=== PATIENT | female | born 1985 | race Caucasian/White ===

== ENCOUNTER → 2018-12-09 | Outpatient (CLI) | payer OTHER ==
--- NOTE | 2018-12-09 16:00 | RAD ---
EXAM: Right lower extremity venous Doppler sonogram. HISTORY: Pain and swelling. TECHNIQUE: Nogueira scale and color Doppler sonographic evaluation of the right lower extremity veins with spectral waveform analysis was performed. FINDINGS: There is normal color flow, normal compressibility and there are normal spectral waveforms in the common femoral, superficial femoral, popliteal, posterior tibial and greater saphenous veins. IMPRESSION: No Doppler evidence of lower extremity deep venous thrombosis. Electronically signed by: Riana Bach MD (12/09/2018 3:57 PM) [id number]
== END | disposition home or self-care (01) ==
LOC: US 14:46
PROVIDERS: ATTEND Physician Assistant
DX: M79.661 Pain in right lower leg (principal); M79.89 Other specified soft tissue disorders
CPT/HCPCS: 93971

== ENCOUNTER 2021-07-03 13:15 | Emergency (ER) | payer OTHER ==
[~2021-07-03] VITALS: Ht 182.9 cm; Wt 125.0 kg
[2021-07-03] MEDS ORDERED: IV NORMAL SALINE 1,000ML 1,000 ML IV ONE (14:45)
[2021-07-03] MEDS ORDERED: ONDANSETRON PF 4 MG/2 ML VIAL. IVP ONE ×3 (14:45→23:00)
[2021-07-03] MEDS ORDERED: FAMOTIDINE 20 MG/2 ML VIAL IVP ONE (14:45)
--- NOTE | 2021-07-03 14:58 | PHYS DOC ---
Past History Additional Past Medical Histor: HELLP (STEPHEN RUFF APRN) Past Surgical History: (STEPHEN RUFF APRN) General Adult EDM: Chief Complaint: NAUSEA/VOMITING/DIARRHEA HPI: HPI: Patient is a 36-year-old female presents with nausea and vomiting for 2 days. Patient states "I have been making myself vomit because it makes me feel better for a little bit". "I had some blood in my vomit but it might have been from my nose". No abdominal pain. Denies fever. Denies recent exposure to illness. Denies diarrhea. Patient states she has a history of type 1 diabetes, stage III kidney disease, liver disease. (STEPHEN RUFF APRN) Review of Systems: Review of Systems: ROS At least 10 ROS systems have been reviewed and are negative except as documented in the HPI. General: Negative except as outlined in HPI above. Skin: Negative except as outlined in HPI above. HEENT: Negative except as outlined in HPI above. Neck: Negative except as outlined in HPI above. Respiratory: Negative except as outlined in HPI above.. Cardiovascular: Negative except as outlined in HPI above. Abdomen: Negative except as outlined in HPI above. : Negative except as outlined in HPI above. Back/MSK: Negative except as outlined in HPI above. Neuro: Negative except as outlined in HPI above. Psych: Negative except as outlined in HPI above. (STEPHEN RUFF APRN) Current Medications: Current Meds: Current Medications Medications (Trade) Dose Ordered Sig/Estelita Start Time Stop Time Status Last Admin Dose Admin Famotidine (Pepcid Vial) 20 mg 1X ONCE 07/03/21 14:45 07/03/21 14:46 UNV Ondansetron HCl (Zofran) 4 mg 1X ONCE 07/03/21 14:45 07/03/21 14:46 UNV Sodium Chloride 1,000 ml @ 1,000 mls/hr 1X ONCE 07/03/21 14:45 07/03/21 15:44 (STEPHEN RUFF APRN) Allergies: Allergies: Allergies Coded Allergies Type Severity Reaction Last Updated Verified Sulfa (Sulfonamide Antibiotics) Allergy Unknown 07/03/21 Yes (STEPHEN RUFF APRN) Physical Exam: PE: Constitutional: Well developed, well nourished, no acute distress, non-toxic appearance. [] HENT: Normocephalic, atraumatic, bilateral external ears normal, oropharynx moist, no oral exudates, nose normal. [] Eyes: PERRLA, EOMI, conjunctiva normal, no discharge. [] Neck: Normal range of motion, no tenderness, supple, no stridor. [] Cardiovascular:Heart rate regular rhythm, no murmur [] Lungs & Thorax: Bilateral breath sounds clear to auscultation [] Abdomen: Bowel sounds normal, soft, no tenderness, no masses, no pulsatile masses. [] Skin: Warm, dry, no erythema, no rash. [] Back: No tenderness, no CVA tenderness. [] Extremities: No tenderness, no cyanosis, no clubbing, ROM intact, no edema. [] Neurologic: Alert and oriented X 3, normal motor function, normal sensory function, no focal deficits noted. [] Psychologic: Affect normal, judgement normal, mood normal. [] (STEPHEN RUFF APRN) Current Patient Data: Vital Signs: Vital Signs Date Time Temp Pulse Resp B/P (MAP) Pulse Ox O2 Delivery O2 Flow Rate FiO2 07/03/21 14:25 97.9 116 20 130/62 (84) 99 Room Air (STEPHEN RUFF APRN) EKG: EKG: [] (STEPHEN RUFF APRN) Radiology/Procedures: Radiology/Procedures: [] (STEPHEN RUFF APRN) Heart Score: C/O Chest Pain: No Risk Factors: Risk Factors: DM, Current or recent (<one month) smoker, HTN, HLP, family history of CAD, obesity. Risk Scores: Score 0 - 3: 2.5% MACE over next 6 weeks - Discharge Home Score 4 - 6: 20.3% MACE over next 6 weeks - Admit for Clinical Observation Score 7 - 10: 72.7% MACE over next 6 weeks - Early Invasive Strategies (STEPHEN RUFF APRN) Course & Med Decision Making: Course & Med Decision Making Pertinent Labs and Imaging studies reviewed. (See chart for details) [] 36-year-old female presents with nausea and vomiting for 2 days. Hemoglobin 6.6, hematocrit 20.8. PRBC ordered along with type and screen. Blood sugar is 444. Patient given 10 units of insulin along with NS bolus. Patient also st ates she noticed blood in her vomit as well. Patient has a history of vomiting blood and needing blood transfusions. Patient has a history of chronic kidney disease along with liver disease. Patient has an upper and lower scheduled for outpatient with her GI doctor at . Discussed admission plan with patient and . Attempted to admit patient to [facility]. Was unable to find a hospital bed for patient. Patient had to be held in the emergency room. Patient reporting nausea. Zofran given. Patient is also very anxious. Patient given Ativan to help with anxiety. Advised patient she would be staying in the ER overnight until a room became available. (STEPHEN RUFF APRN) Course & Med Decision Making I was attending physician during 6a-6p date of service. I reviewed initial complaints in a pale and tachycardic patient pending outpatient endoscopy. I recommended blood transfusion and need for transfer for inpatient admission and GI consultation. She will also need further mgmt of her uncontrolled type 2 DM that she has been non-compliant with her meds Electronically signed, Mirian Mendoza DO (MIRIAN MENDOZA DO) Ede Disclaimer: Ede Disclaimer: This electronic medical record was generated, in whole or in part, using a voice recognition dictation system. (STEPHEN RUFF APRN) Departure Departure: Impression: Primary Impression: GI bleed Additional Impressions: Acute on chronic blood loss anemia Type 2 diabetes mellitus with hyperglycemia Disposition: 02 [facility]ORT [facility]M [facility] (ERASED) Condition: STABLE Referrals: LINDA MILLER (PCP) STEPHEN RUFF APRN Jul 03, 2021 14:58 MIRIAN MENDOZA DO Jul 05, 2021 11:10
[2021-07-03 15:56] LABS: BASO % 0 % (0-3); EOS % 0 % (0-3); HEMATOCRIT 20.8 % (36.0-47.0); LYMPH # 1.2 x10^3/uL (1.0-4.8); LYMPH % 11 % (24-48); MEAN CORPUSCULAR HEMOGLOBIN 29 pg (25-35); MEAN CORPUSCULAR HGB CONC 32 g/dL (31-37); MEAN CORPUSCULAR VOLUME 92 fL (79-100); MONO # 0.4 x10^3/uL (0.0-1.1); MONO % 3 % (0-9); NEUT # 9.5 x10^3uL (1.8-7.7); NEUT % 86 % (31-73); PLATELET COUNT 145 x10^3/uL (140-400); RED BLOOD COUNT 2.26 x10^6/uL (3.50-5.40); RED CELL DISTRIBUTION WIDTH 16.2 % (11.5-14.5)
[2021-07-03 16:15] LABS: CALCIUM 7.6 mg/dL (8.5-10.1); CREATININE 1.5 mg/dL (0.6-1.0); GFR 39.1; HEMOGLOBIN 6.6 g/dL (12.0-15.5); POTASSIUM 5.5 mmol/L (3.5-5.1)
[2021-07-03 16:21] LABS: ALBUMIN 2.2 g/dL (3.4-5.0); ALBUMIN/GLOBULIN RATIO 0.6 (1.0-1.7); TOTAL BILIRUBIN 0.5 mg/dL (0.2-1.0)
[2021-07-03] MEDS ORDERED: INSULIN REGULAR 100 UNIT/ML 3ML VIAL. IV ONE (17:15)
--- NOTE | 2021-07-03 17:15 | EKG ---
[address] [address] Test Date: 2021-07-03 Test Time: 14:51:41 Pat Name: NIDHI CAUSEY Department: Room: Gender: F [employer] B[employer]: DAGOBERTO : 1985 Requested By: STEPHEN RUFF Order Number: [id number] Reading MD: Eduar Darden Measurements Intervals [place] Rate: 115 P: 0 MS: 88 QRS: 12 QRSD: 88 T: 21 QT: 322 QTc: 447 Interpretive Statements SINUS TACHYCARDIA OTHERWISE NORMAL ECG RI6.02 No previous ECG available for comparison Electronically Signed On 07-05-2021 16:05:57 [employer] by Eduar Darden
[2021-07-03] MEDS ORDERED: PANTOPRAZOLE IV 40 MG VIAL. IVP ONE (18:45)
[2021-07-03 20:18] VITALS: BP 111/61
[2021-07-03 20:28] LABS: FECAL OB PT POSITIVE (NEG)
[2021-07-03 20:40] VITALS: BP 112/55
[2021-07-03 21:40] VITALS: BP 122/61
[2021-07-03 22:35] VITALS: BP 140/58
[2021-07-03 23:00] VITALS: BP 136/64
[2021-07-03] MEDS ORDERED: METOCLOPRAMIDE HCL 10 MG/2 ML VIAL. IVP ONE (23:45)
== END 2021-07-04 | disposition left against medical advice (07) ==
LOC: ER 13:15
DX: K92.2 Gastrointestinal hemorrhage, unspecified (principal); D62 Acute posthemorrhagic anemia; E11.65 Type 2 diabetes mellitus with hyperglycemia; Z20.822 Contact with and (suspected) exposure to COVID-19; Z88.2 Allergy status to sulfonamides
CPT/HCPCS: 36415; 36430; 80053; 82274; 82947; 83690; 85025; 85610; 86850; 86900; 86901; 86920; 87426; 93005; 96361; 96374; 96375; 96376; 99285; C9113; C9803; J1815; J2060; J2405; J3490; J7030; P9016; U0003